=== PATIENT | female | born 2000 | race Caucasian/White ===

== ENCOUNTER 2021-01-26 22:25 | Emergency (ER) | payer OTHER ==
[~2021-01-26] VITALS: Ht 154.9 cm; Wt 59.0 kg
[2021-01-26 22:30] VITALS: BP 132/77
--- NOTE | 2021-01-26 22:30 | NUR ---
to bed ambulatory
--- NOTE | 2021-01-26 22:54 | NUR ---
20 Y/O FEMALE PT PRESENT TO ED C/O RASH X 1 WEEK. PER PT, "I GOT THE COVID-19 VACCINE LAST Dec, AND I GOT MODERNA. AND I'V BEEN ITCHY EVER SINCE THAT AND I HAVE RASHES ALL OVER MY BODY." DENIES ANY FEVER, CHILLS, NAUSEA, VOMMITING. PT IS NOT IN ANY RESPIRATORY DISTRESS. NKA PMH: DENIES
[2021-01-27] MEDS ORDERED: diphenhydrAMINE 50 MG/ML VIAL IM ONE (00:20)
[2021-01-27] MEDS ORDERED: methylPREDNISolone SS 60 MG in WATER STERILE 1 ML IM ONE (00:20)
[2021-01-27] MEDS ORDERED: methylPREDNISolone SS 40 MG/ML VIAL ONE ×2 (00:41→00:42)
[2021-01-27] MEDS ORDERED: WATER STERILE 10 ML MC ONE ×2 (00:41→00:42)
[2021-01-27] MEDS ORDERED: PRED20TA5 PO (01:06)
[2021-01-27] MEDS ORDERED: FAMO-90 PO (01:06)
[2021-01-27] MEDS ORDERED: DIPH25TA53 PO (01:06)
[2021-01-27] MEDS ORDERED: BENC TP (01:06)
[2021-01-27 01:15] VITALS: BP 132/77
--- NOTE | 2021-01-27 01:15 | NUR ---
Patient discharged with v/s stable. Written and verbal after care instructions given and explained. Patient alert, oriented and verbalized understanding of instructions. Ambulatory with steady gait. All questions addressed prior to discharge. ID band removed. Patient advised to follow up with PMD. Rx of BENADRYL AND PEPCID given. Patient educated on indication of medication including possible reaction and side effects. Opportunity to ask questions provided and answered.
== END 2021-01-27 01:15 | disposition home or self-care (01) ==
LOC: MED 22:25
DX: T88.1XXA Other complications following immunization, not elsewhere classified, initial encounter (principal); L50.9 Urticaria, unspecified
CPT/HCPCS: 96372; 99284; J1200; J2920

== ENCOUNTER 2021-07-09 21:08 | Emergency (ER) | payer OTHER ==
[~2021-07-09] VITALS: Ht 152.4 cm; Wt 56.7 kg
[~2021-07-09 21:08] MED LIST: BENC TP; DIPH25TA53 PO; FAMO-90 PO; PRED20TA5 PO
[2021-07-09 21:10] VITALS: BP 115/83
--- NOTE | 2021-07-09 21:10 | NUR ---
TO BED AMBULATORY
[2021-07-09] MEDS ORDERED: ONDANSETRON 4 MG ODT PO ONE (21:20)
--- NOTE | 2021-07-09 21:30 | NUR ---
20 Y/O FEMALE BIB SELF, C/O N/V X1-2 WKS. PATIENT PRESENTS TO ED WITH COMPLAINTS OF FATIGE AND FEELING ACHY. PT STATES SHE HAS BEEN SLEEPING A LOT AND NOT EATING WELL FOR ALMOST 2 WEEKS. DENIES DIARRHEA OR HEMATEMESIS; SKIN IS PINK/WARM/DRY; AAOX4 WITH EVEN AND STEADY GAIT; LUNGS CLEAR BL; HR EVEN AND REGULAR; PT DENIES ANY FEVER, CP, SOB, OR COUGH AT THIS TIME; PATIENT STATES PAIN OF 0/10 AT THIS TIME; VSS; PATIENT POSITIONED FOR COMFORT; HOB ELEVATED; BEDRAILS UP X1; BED DOWN. ER MD MADE AWARE OF PT STATUS. DENIES HX, ALLERGIES, OR MEDS.
--- NOTE | 2021-07-09 21:38 | NUR ---
URINE COLLECTED AND WALKED TO LAB
[2021-07-09 21:51] LABS: BILIRUBIN,URINE NEGATIVE (NEGATIVE); BLOOD, URINE NEGATIVE (NEGATIVE); LEUKOCYTE ESTERASE ,URINE TRACE (NEGATIVE); NITRITE, URINE NEGATIVE (NEGATIVE); PH,URINE 6.5 (5.0-9.0); UGLUCOSE NEGATIVE (NEGATIVE)
[2021-07-09 21:52] LABS: APPEARANCE,URINE HAZY (CLEAR); COLOR,URINE STRAW (YELLOW)
[2021-07-09 22:02] LABS: RBC,URINE NONE SEEN /HPF (0-5); WBC,URINE 20-60 /HPF (0-5)
--- NOTE | 2021-07-09 22:10 | NUR ---
Dr. Bashir examining patient.
[2021-07-09] MEDS ORDERED: cefTRIAXone 1,000 MG in LIDOCAINE MPF 1% 2.1 ML IM ONE (22:15)
[2021-07-09] MEDS ORDERED: PHENAZOPYRIDINE 100 MG TAB PO ONE (22:15)
[2021-07-09] MEDS ORDERED: ACETAMINOPHEN 325 MG TAB PO ONE (22:15)
[2021-07-09] MEDS ORDERED: cefTRIAXone 1,000 MG VIAL ONE (22:22)
[2021-07-09] MEDS ORDERED: LIDOCAINE MPF 1% 5 ML ONE (22:23)
[2021-07-09] MEDS ORDERED: PHEN-1877 PO (22:56)
[2021-07-09] MEDS ORDERED: CEPH-588 PO (22:56)
[2021-07-09] MEDS ORDERED: ONDA-188 SL (22:56)
[2021-07-09 23:03] VITALS: BP 115/83
--- NOTE | 2021-07-09 23:03 | NUR ---
Patient discharged with v/s stable. Written and verbal after care instructions given and explained. Patient alert, oriented and verbalized understanding of instructions. Ambulatory with steady gait. All questions addressed prior to discharge. ID band removed. Patient advised to follow up with PMD. Rx of Cephalexin, Ondansetron, and Phewnazopyridine given. Patient educated on indication of medication including possible reaction and side effects. Opportunity to ask questions provided and answered. VSS, A/OX4, AMBULATORY, UNLABORED BREATHING, AND CALM DEMEANOR.
== END 2021-07-09 23:03 | disposition home or self-care (01) ==
LOC: MED 21:08
DX: N39.0 Urinary tract infection, site not specified (principal); Z79.899 Other long term (current) drug therapy; Z79.2 Long term (current) use of antibiotics
CPT/HCPCS: 81001; 81025; 87086; 96372; 99284; J0696; J2001; Q0162

== ENCOUNTER 2021-11-09 15:19 | Emergency (ER) | payer OTHER ==
[~2021-11-09] VITALS: Ht 149.9 cm; Wt 61.2 kg
[~2021-11-09 15:19] MED LIST changes: +CEPH-588 PO; +ONDA-188 SL; +PHEN-1877 PO
[2021-11-09 15:27] VITALS: BP 135/92
--- NOTE | 2021-11-09 16:35 | NUR ---
PT TAKEN TO ULTRASOUND VIA W/C
[2021-11-09 16:37] LABS: BASOPHILS % (AUTO) 0.7 % (0.0-2.0); EOSINOPHILS # (AUTO) 0.1 K/uL (0-0.4); EOSINOPHILS % (AUTO) 1.5 % (0.0-4.0); HEMATOCRIT 36.5 % (36-48); HEMOGLOBIN 12.3 g/dL (12.0-16.0); LYMPHOCYTES # (AUTO) 2.4 K/uL (2.5-16.5); LYMPHOCYTES % (AUTO) 35.4 % (20.5-51.1); MEAN CORPUSCULAR HEMOGLOBIN 31 pg (27-31); MEAN CORPUSCULAR HGB CONC 34 g/dL (33-37); MEAN CORPUSCULAR VOLUME 91.6 fL (80-94); MONOCYTES # (AUTO) 0.3 K/uL (0.8-1.0); MONOCYTES % (AUTO) 4.9 % (1.7-9.3); NEUTROPHILS # (AUTO) 3.9 K/uL (1.8-7.7); NEUTROPHILS % (AUTO) 57.5 % (42.2-75.2); PLATELET COUNT (AUTO) 239 K/uL (140-450); RED BLOOD CELL COUNT(AUTO) 3.98 MIL/uL (4.20-5.40); WHITE BLOOD COUNT (AUTO) 6.8 K/uL (4.5-11.0)
[2021-11-09] MEDS ORDERED: CEPH-588 PO (18:05)
[2021-11-09] MEDS ORDERED: ACET-9882 PO (18:05)
[2021-11-09 18:30] VITALS: BP 108/67
--- NOTE | 2021-11-09 18:30 | NUR ---
Patient discharged with v/s stable. Written and verbal after care instructions given and explained. Patient verbalized understanding. Ambulatory with steady gait. All questions addressed prior to discharge. Advised to follow up with PMD.
== END 2021-11-09 18:28 | disposition home or self-care (01) ==
LOC: MED 15:19
DX: O23.41 Unspecified infection of urinary tract in pregnancy, first trimester (principal); M54.9 Dorsalgia, unspecified; R03.0 Elevated blood-pressure reading, without diagnosis of hypertension; Z3A.01 Less than 8 weeks gestation of pregnancy; Z79.899 Other long term (current) drug therapy; Z79.2 Long term (current) use of antibiotics
CPT/HCPCS: 36415; 76817; 81002; 81025; 84702; 85025; 87086; 99284; Q0092

== ENCOUNTER 2021-11-24 01:16 | Emergency (ER) | payer OTHER ==
[~2021-11-24] VITALS: Ht 152.4 cm; Wt 55.0 kg
[~2021-11-24 01:16] MED LIST changes: +ACET-9882 PO
[2021-11-24 01:24] VITALS: BP 109/66
--- NOTE | 2021-11-24 01:29 | NUR ---
PT AMBULATED TO BED #7
--- NOTE | 2021-11-24 01:43 | NUR ---
21/F BIB SELF C/C VAG BLEED 6WKS XTHURSDAY. +SPOTTING. REPORTS INTERMITTENT 6/10 CRAMPING PAIN. +N/V, STATES SHE IS UNABLE TO HOLD ANYTHING DOWN FOOD/DRINKS. LAST TIME PATIENT ATE WAS ON / DOESN HAVE AN APPETITE. PATIENT HAS AN OB KOFI ON THURSDAY. RR EVEN AND UNLABORED. PLACED ON GOWN. BED LOW AND LOCKED. SIDE RAIL UP FOR SAFETY. ALL NEEDS MET. LMP: MAY, ABNORMAL CYCLE. DENIES PMHX MEDS PRENATALS NKA
[2021-11-24] MEDS ORDERED: ONDANSETRON 4 MG/2 ML VIAL IVP ONE (01:45)
[2021-11-24] MEDS ORDERED: NACL 0.9% 1,000 ML IV ONE (01:45)
[2021-11-24] MEDS ORDERED: ACETAMINOPHEN EXTRA STRENGTH 500 MG TAB PO ONE (01:45)
--- NOTE | 2021-11-24 01:52 | NUR ---
JONNYN UNABLE TO PROVIDE URINE AT THIS TIME. RQ APPLE JUICE. WILL ATTEMPT TO GO LATER
--- NOTE | 2021-11-24 02:00 | NUR ---
MD LLANES AT BEDSIDE
--- NOTE | 2021-11-24 02:12 | NUR ---
IV ESTABLISHED, BLOOD COLLECTED AND HANDED TO LAB
--- NOTE | 2021-11-24 02:20 | NUR ---
clarified with to only give 4mg of zofran ivp.
[2021-11-24 02:30] LABS: BASOPHILS % (AUTO) 0.6 % (0.0-2.0); EOSINOPHILS % (AUTO) 0.1 % (0.0-4.0); HEMATOCRIT 32.3 % (36-48); HEMOGLOBIN 11.3 g/dL (12.0-16.0); LYMPHOCYTES # (AUTO) 1.7 K/uL (2.5-16.5); MEAN CORPUSCULAR HEMOGLOBIN 31 pg (27-31); MEAN CORPUSCULAR HGB CONC 35 g/dL (33-37); MEAN CORPUSCULAR VOLUME 89.6 fL (80-94); MONOCYTES # (AUTO) 0.7 K/uL (0.8-1.0); MONOCYTES % (AUTO) 9.6 % (1.7-9.3); NEUTROPHILS # (AUTO) 4.8 K/uL (1.8-7.7); NEUTROPHILS % (AUTO) 66.7 % (42.2-75.2); PLATELET COUNT (AUTO) 226 K/uL (140-450); RED CELL DISTRIBUTION WIDTH 12.5 % (11.6-13.7); WHITE BLOOD COUNT (AUTO) 7.2 K/uL (4.5-11.0)
--- NOTE | 2021-11-24 02:30 | NUR ---
CALLED US, SPOKE TO ANDREA.. US TECH AWARE OF ORDER WILL BE COMING FROM [facility].
--- NOTE | 2021-11-24 02:44 | NUR ---
PATIENT AMBULATED TO THE RR
--- NOTE | 2021-11-24 02:46 | NUR ---
URINE COLLECTED AND WALKED TO LAB
--- NOTE | 2021-11-24 02:59 | NUR ---
US AT BEDSIDE
[2021-11-24 03:13] LABS: ALBUMIN 4.1 g/dL (3.4-5.0); ANION GAP 11.8 (8-16); CARBON DIOXIDE 25.9 mmol/L (21-32); CREATININE 0.6 mg/dL (0.6-1.3); POTASSIUM 3.7 mmol/L (3.5-5.1); TOTAL BILIRUBIN 0.5 mg/dL (0.0-1.0)
[2021-11-24 03:22] LABS: BILIRUBIN,URINE NEGATIVE (NEGATIVE); BLOOD, URINE NEGATIVE (NEGATIVE); COLOR,URINE YELLOW (YELLOW); LEUKOCYTE ESTERASE ,URINE NEGATIVE (NEGATIVE); NITRITE, URINE NEGATIVE (NEGATIVE); UGLUCOSE NEGATIVE (NEGATIVE)
[2021-11-24 03:35] LABS: APPEARANCE,URINE SLIGHTLY HAZY (CLEAR); RBC,URINE 0-5 /HPF (0-5)
--- NOTE | 2021-11-24 04:20 | NUR ---
PATIETN SLEEPING IN BED. DOESNT APPEAR TO BE IN DISTRESS. BED LOW AND LOCKED. SIDE RAIL UP.
[2021-11-24] MEDS ORDERED: CEPH-588 PO (04:59)
--- NOTE | 2021-11-24 04:59 | NUR ---
CHERYL AMBULATED TO THE RR AND BACK TO BED
--- NOTE | 2021-11-24 05:35 | NUR ---
PATIENT RQ FOOD AND DRINKS. SITTING IN BED EATING.
--- NOTE | 2021-11-24 05:35 | NUR ---
IV removed, catheter intact and site benign. Applied folded 4x4 gauze and tape to stop bleeding.
[2021-11-24 05:40] VITALS: BP 112/70
--- NOTE | 2021-11-24 05:40 | NUR ---
Patient discharged with v/s stable. Written and verbal after care instructions given and explained. Patient alert, oriented and verbalized understanding of instructions. Ambulatory with steady gait. All questions addressed prior to discharge. ID band removed. Patient advised to follow up with PMD. Rx of KEFLEX given.
--- NOTE | 2021-11-24 05:50 | NUR ---
The patient's care was reviewed and supervised by Bri Kelly RN.
== END 2021-11-24 05:39 | disposition home or self-care (01) ==
LOC: MED 01:16
DX: O20.0 Threatened abortion (principal); O23.41 Unspecified infection of urinary tract in pregnancy, first trimester; Z79.2 Long term (current) use of antibiotics; Z79.899 Other long term (current) drug therapy; Z3A.01 Less than 8 weeks gestation of pregnancy
CPT/HCPCS: 36415; 76801; 80053; 81001; 84702; 84703; 85025; 86900; 86901; 87086; 96361; 96374; 99285; J2405; J7030; Q0092

== ENCOUNTER 2021-12-27 18:52 | Emergency (ER) | payer OTHER ==
[~2021-12-27] VITALS: Ht 152.4 cm; Wt 52.2 kg
--- NOTE | 2021-12-27 19:01 | NUR ---
name called, no answer at this time
[2021-12-27 19:22] VITALS: BP 106/55
--- NOTE | 2021-12-27 19:28 | NUR ---
Triage note: c/o N/V x 2 days 11 weeks . pmh: denies
[2021-12-27] MEDS ORDERED: NACL 0.9% 1,000 ML IV ONE (22:20)
[2021-12-27] MEDS ORDERED: ONDANSETRON 4 MG/2 ML VIAL IVP ONE (22:25)
[2021-12-27 22:34] LABS: BASOPHILS % (AUTO) 0.5 % (0.0-2.0); EOSINOPHILS % (AUTO) 0.7 % (0.0-4.0); HEMATOCRIT 33.9 % (36-48); HEMOGLOBIN 11.4 g/dL (12.0-16.0); LYMPHOCYTES % (AUTO) 29.4 % (20.5-51.1); MEAN CORPUSCULAR HEMOGLOBIN 30 pg (27-31); MEAN CORPUSCULAR HGB CONC 34 g/dL (33-37); MEAN CORPUSCULAR VOLUME 90.3 fL (80-94); MONOCYTES # (AUTO) 0.3 K/uL (0.8-1.0); NEUTROPHILS # (AUTO) 4.4 K/uL (1.8-7.7); NEUTROPHILS % (AUTO) 65.4 % (42.2-75.2); PLATELET COUNT (AUTO) 213 K/uL (140-450); RED BLOOD CELL COUNT(AUTO) 3.75 MIL/uL (4.20-5.40); RED CELL DISTRIBUTION WIDTH 13.2 % (11.6-13.7); WHITE BLOOD COUNT (AUTO) 6.8 K/uL (4.5-11.0)
[2021-12-27 22:40] LABS: APPEARANCE,URINE HAZY (CLEAR); BILIRUBIN,URINE NEGATIVE (NEGATIVE); BLOOD, URINE NEGATIVE (NEGATIVE); COLOR,URINE YELLOW (YELLOW); LEUKOCYTE ESTERASE ,URINE 1+ (NEGATIVE); NITRITE, URINE NEGATIVE (NEGATIVE); UGLUCOSE NEGATIVE (NEGATIVE)
[2021-12-27 22:48] LABS: ALBUMIN 3.5 g/dL (3.4-5.0); ANION GAP 11.3 (8-16); CARBON DIOXIDE 26.1 mmol/L (21-32); CREATININE 0.6 mg/dL (0.6-1.3); POTASSIUM 3.4 mmol/L (3.5-5.1); TOTAL BILIRUBIN 0.3 mg/dL (0.0-1.0)
[2021-12-27 22:56] LABS: RBC,URINE 0-5 /HPF (0-5)
--- NOTE | 2021-12-28 00:15 | NUR ---
PT TO ROOM 8 . GOWN PLACED ON PT.
--- NOTE | 2021-12-28 00:25 | NUR ---
21YR OLD FEMALE BIB SELF C/O VOMITING NAUSEA. PT IS 11WEEKS PREG . DENIES VAG BLEED OR PAIN . STATES HAS A SOME CRAMPING WHEN VOMITING. PT FIRST PREG. NO DISTRESS NOTED. A&OX4 . 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 IS RECIEVING CARE. RESP EVEN AND UNLABORED. HOB ELEVATED. 22G PLACED IN R AC. NKDA NO MED HX
--- NOTE | 2021-12-28 01:11 | NUR ---
PT IS ASLEEP HOB ELEVATED. PO CHALLENGE TOLERATED. DENIES NAUSEA .
[2021-12-28] MEDS ORDERED: cefTRIAXone 1,000 MG VIAL ONE (01:30)
[2021-12-28] MEDS ORDERED: NITR100C7 PO (02:18)
[2021-12-28] MEDS ORDERED: ONDA-188 SL (02:21)
== END 2021-12-28 02:23 | disposition home or self-care (01) ==
LOC: MED 18:52
DX: O21.0 Mild hyperemesis gravidarum (principal); O23.41 Unspecified infection of urinary tract in pregnancy, first trimester; N39.0 Urinary tract infection, site not specified; Z3A.11 11 weeks gestation of pregnancy
CPT/HCPCS: 36415; 80053; 81001; 84702; 85025; 87040; 87086; 96361; 96365; 96375; 99284; J0696; J2405; J7030

== ENCOUNTER 2022-01-12 12:00 | Emergency (ER) | payer OTHER ==
[~2022-01-12] VITALS: Ht 152.4 cm; Wt 51.7 kg
[~2022-01-12 12:00] MED LIST changes: +NITR100C7 PO
--- NOTE | 2022-01-12 12:11 | NUR ---
PATIENT BIBA TO BED 5
[2022-01-12 12:20] VITALS: BP 122/60
--- NOTE | 2022-01-12 12:35 | NUR ---
21 y/o female biba from home, c/o vaginal bleeding that started today, pt states she is 13 weeks with hx of previous miscarriage. pt states she has increased pain on right pelvic area that radiates to ruq of her abd, increases with ambulation. pt is a&ox4, ambulates with heavy assist at this time due to pain. lungs bl clear, heart rate even and regular. pt denies cough, fever, sob, cp or sore throat. denies vomiting or diarrhea. 2G 1A 0L pmh: denies nka med: vitamins
[2022-01-12 13:26] LABS: BASOPHILS % (AUTO) 0.4 % (0.0-2.0); EOSINOPHILS % (AUTO) 0.6 % (0.0-4.0); HEMATOCRIT 31.5 % (36-48); HEMOGLOBIN 10.8 g/dL (12.0-16.0); LYMPHOCYTES # (AUTO) 1.2 K/uL (2.5-16.5); LYMPHOCYTES % (AUTO) 18.4 % (20.5-51.1); MEAN CORPUSCULAR HEMOGLOBIN 31 pg (27-31); MEAN CORPUSCULAR HGB CONC 34 g/dL (33-37); MEAN CORPUSCULAR VOLUME 91.3 fL (80-94); MONOCYTES # (AUTO) 0.3 K/uL (0.8-1.0); MONOCYTES % (AUTO) 4.7 % (1.7-9.3); NEUTROPHILS # (AUTO) 5.1 K/uL (1.8-7.7); NEUTROPHILS % (AUTO) 75.9 % (42.2-75.2); PLATELET COUNT (AUTO) 190 K/uL (140-450); RED BLOOD CELL COUNT(AUTO) 3.45 MIL/uL (4.20-5.40); RED CELL DISTRIBUTION WIDTH 13.4 % (11.6-13.7); WHITE BLOOD COUNT (AUTO) 6.7 K/uL (4.5-11.0)
[2022-01-12 13:40] LABS: ALBUMIN 3.1 g/dL (3.4-5.0); ANION GAP 11.9 (8-16); CARBON DIOXIDE 22.7 mmol/L (21-32); CREATININE 0.6 mg/dL (0.6-1.3); POTASSIUM 3.6 mmol/L (3.5-5.1); TOTAL BILIRUBIN 0.3 mg/dL (0.0-1.0)
[2022-01-12 15:32] VITALS: BP 122/60
== END 2022-01-12 15:34 | disposition home or self-care (01) ==
LOC: MED 12:00
DX: O20.0 Threatened abortion (principal); Z3A.13 13 weeks gestation of pregnancy
CPT/HCPCS: 36415; 76801; 80053; 84702; 85025; 86901; 99284; Q0092

== ENCOUNTER 2022-05-16 20:24 | Observation (INO) | payer MEDICAID ==
[~2022-05-16] VITALS: Ht 152.4 cm; Wt 54.4 kg
[2022-05-16] MEDS ORDERED: cefTRIAXone 1,000 MG in LIDOCAINE MPF 1% 2.1 ML IM ONE (21:15)
[2022-05-16] MEDS ORDERED: LIDOCAINE 1% 500 MG/ 50 ML VIAL INJ ONE (21:15)
[2022-05-16 21:17] VITALS: BP 113/69
[2022-05-16] MEDS ORDERED: cefTRIAXone 1,000 MG VIAL ONE (21:21)
[2022-05-16] MEDS ORDERED: LIDOCAINE 1% 500 MG/50 ML VIAL ONE (21:22)
[2022-05-16] MEDS ORDERED: cefTRIAXone 1,000 MG in LIDOCAINE MPF 1% 2.1 ML INJ SCH (21:30)
== END 2022-05-16 22:00 | disposition home or self-care (01) ==
LOC: MLD 20:24
PROVIDERS: ADMIT Obstetrics & Gynecology; ATTEND Obstetrics & Gynecology
DX: O26.893 Other specified pregnancy related conditions, third trimester (principal); R10.9 Unspecified abdominal pain; Z3A.31 31 weeks gestation of pregnancy
CPT/HCPCS: 96374; G0378; J0696; J2001

== ENCOUNTER 2022-06-16 11:11 | Observation (INO) | payer MEDICAID ==
[~2022-06-16] VITALS: Ht 152.4 cm; Wt 63.5 kg
[2022-06-16] MEDS ORDERED: PRETAB PO (11:52)
[2022-06-16 12:14] VITALS: BP 110/61
[2022-06-16] MEDS ORDERED: diphenhydrAMINE 50 MG CAP PO SCH (13:00)
[2022-06-16 13:02] LABS: BASOPHILS % (AUTO) 0.6 % (0.0-2.0); EOSINOPHILS # (AUTO) 0.1 K/uL (0-0.4); HEMATOCRIT 27.9 % (36-48); HEMOGLOBIN 9.5 g/dL (12.0-16.0); LYMPHOCYTES # (AUTO) 1.9 K/uL (2.5-16.5); MEAN CORPUSCULAR HEMOGLOBIN 30 pg (27-31); MEAN CORPUSCULAR HGB CONC 34 g/dL (33-37); MEAN CORPUSCULAR VOLUME 87.8 fL (80-94); MONOCYTES # (AUTO) 0.4 K/uL (0.8-1.0); MONOCYTES % (AUTO) 6.2 % (1.7-9.3); NEUTROPHILS # (AUTO) 4.4 K/uL (1.8-7.7); NEUTROPHILS % (AUTO) 64.2 % (42.2-75.2); PLATELET COUNT (AUTO) 203 K/uL (140-450); RED BLOOD CELL COUNT(AUTO) 3.18 MIL/uL (4.20-5.40); RED CELL DISTRIBUTION WIDTH 13.6 % (11.6-13.7); WHITE BLOOD COUNT (AUTO) 6.9 K/uL (4.5-11.0)
[2022-06-16 13:20] LABS: APPEARANCE,URINE SL CLOUDY (CLEAR); BILIRUBIN,URINE NEGATIVE (NEGATIVE); BLOOD, URINE NEGATIVE (NEGATIVE); COLOR,URINE YELLOW (YELLOW); LEUKOCYTE ESTERASE ,URINE 1+ (NEGATIVE); NITRITE, URINE NEGATIVE (NEGATIVE); UGLUCOSE NEGATIVE (NEGATIVE)
[2022-06-16 13:26] LABS: ALBUMIN 2.8 g/dL (3.4-5.0); ANION GAP 10.2 (8-16); CARBON DIOXIDE 23.4 mmol/L (21-32); CREATININE 0.6 mg/dL (0.6-1.3); POTASSIUM 3.6 mmol/L (3.5-5.1); TOTAL BILIRUBIN 0.4 mg/dL (0.0-1.0)
[2022-06-16 13:34] LABS: RBC,URINE 0-5 /HPF (0-5)
[2022-06-16 13:35] LABS: OTHER CASTS, URINE None Seen /LPF (None Seen)
[2022-06-16 15:26] VITALS: BP 101/66
[2022-06-16] MEDS ORDERED: TRIAMCINOLONE 0.1% CRM 15 GM TUBE TP SCH (21:00)
== END 2022-06-16 16:00 | disposition home or self-care (01) ==
LOC: MLD 11:11 → MERGE 11:11
PROVIDERS: ADMIT Obstetrics & Gynecology; ATTEND Obstetrics & Gynecology
DX: O26.893 Other specified pregnancy related conditions, third trimester (principal); Z20.822 Contact with and (suspected) exposure to COVID-19; L29.9 Pruritus, unspecified; O62.9 Abnormality of forces of labor, unspecified; Z3A.35 35 weeks gestation of pregnancy
CPT/HCPCS: 36415; 80053; 81001; 85025; 86886; 86900; 86901; 87086; 87426; G0378; Q0163

== ENCOUNTER 2022-07-08 16:35 | Inpatient (IN) | payer MEDICAID ==
[~2022-07-08] VITALS: Ht 152.4 cm; Wt 63.5 kg
[~2022-07-08 16:35] MED LIST changes: -ACET-9882 PO; -BENC TP; -CEPH-588 PO; -DIPH25TA53 PO; -FAMO-90 PO; -NITR100C7 PO; -ONDA-188 SL; -PHEN-1877 PO; -PRED20TA5 PO; +PRETAB PO
[2022-07-08] MEDS ORDERED: METHYLERGONOVINE 0.2 MG/ML AMP IM PRN (16:55)
[2022-07-08] MEDS ORDERED: LACTATED RINGERS 500 ML IV SCH (16:55)
[2022-07-08] MEDS ORDERED: OXYTOCIN 20 UNITS in LACTATED RINGERS 1,000 ML IV SCH (16:55)
[2022-07-08] MEDS ORDERED: OXYTOCIN 10 UNITS/ML VIAL IM SCH (16:55)
[2022-07-08] MEDS ORDERED: CARBOPROST 250 MCG/ML AMP IM PRN (16:55)
[2022-07-08] MEDS: LACTATED RINGERS 1,000 ML IV SCH (16:56)
--- NOTE | 2022-07-08 17:07 | NUR ---
PATIENT HAS BEEN SCREENED AND CATEGORIZED LOW NUTRITION RISK. PATIENT WILL BE SEEN WITHIN 7 DAYS OF ADMISSION. 07/15/[address]VIEW[address] BY ELMA BLOCK RD
[2022-07-08 17:15] LABS: APPEARANCE,URINE CLEAR (CLEAR); BILIRUBIN,URINE NEGATIVE (NEGATIVE); BLOOD, URINE 1+ (NEGATIVE); COLOR,URINE YELLOW (YELLOW); LEUKOCYTE ESTERASE ,URINE TRACE (NEGATIVE); NITRITE, URINE NEGATIVE (NEGATIVE); UGLUCOSE NEGATIVE (NEGATIVE)
[2022-07-08 17:15] LABS: BASOPHILS % (AUTO) 0.3 % (0.0-2.0); EOSINOPHILS % (AUTO) 0.3 % (0.0-4.0); HEMATOCRIT 29.3 % (36-48); HEMOGLOBIN 9.8 g/dL (12.0-16.0); LYMPHOCYTES # (AUTO) 1.5 K/uL (2.5-16.5); LYMPHOCYTES % (AUTO) 19.1 % (20.5-51.1); MEAN CORPUSCULAR HEMOGLOBIN 29 pg (27-31); MEAN CORPUSCULAR HGB CONC 33 g/dL (33-37); MEAN CORPUSCULAR VOLUME 87.1 fL (80-94); MONOCYTES # (AUTO) 0.4 K/uL (0.8-1.0); MONOCYTES % (AUTO) 5.1 % (1.7-9.3); NEUTROPHILS # (AUTO) 5.8 K/uL (1.8-7.7); NEUTROPHILS % (AUTO) 75.2 % (42.2-75.2); PLATELET COUNT (AUTO) 235 K/uL (140-450); RED BLOOD CELL COUNT(AUTO) 3.36 MIL/uL (4.20-5.40); RED CELL DISTRIBUTION WIDTH 14.3 % (11.6-13.7); WHITE BLOOD COUNT (AUTO) 7.7 K/uL (4.5-11.0)
[2022-07-08] MEDS: MORPHINE SULFATE 10 MG/ML VIAL IVP PRN ×2 (17:46→20:55)
[2022-07-08] MEDS: ONDANSETRON 4 MG/2 ML VIAL IVP PRN (17:47)
[2022-07-08 17:49] LABS: PROTHROMBIN TIME 8.8 secs (10.8-13.4)
[2022-07-08 17:52] LABS: ALBUMIN 2.8 g/dL (3.4-5.0); ANION GAP 12.4 (8-16); CARBON DIOXIDE 25.2 mmol/L (21-32); CREATININE 0.7 mg/dL (0.6-1.3); POTASSIUM 3.6 mmol/L (3.5-5.1); TOTAL BILIRUBIN 0.4 mg/dL (0.0-1.0)
[2022-07-08 18:37] VITALS: BP 119/75
[2022-07-09] MEDS: ONDANSETRON 4 MG/2 ML VIAL IVP PRN ×2 (00:23→06:09)
[2022-07-09] MEDS: MORPHINE SULFATE 10 MG/ML VIAL IVP PRN ×6 (00:24→16:22)
[2022-07-09] MEDS: LACTATED RINGERS 1,000 ML IV SCH ×3 (01:59→21:38)
[2022-07-09] MEDS ORDERED: OXYTOCIN 20 UNITS/LR PREMIX 1,000 ML IV ONE (13:06)
[2022-07-09] MEDS ORDERED: LIDOCAINE 1% 500 MG/50 ML VIAL ONE (13:07)
[2022-07-09 16:22] VITALS: BP 133/87
[2022-07-09] MEDS ORDERED: ROPIVACAINE 0.2%/NS PREMIX 200 ML EPI ONE (21:43)
[2022-07-09] MEDS ORDERED: fentaNYL citrate 0.05 MG/ML VIAL ONE (21:59)
[2022-07-10] MEDS: LACTATED RINGERS 1,000 ML IV SCH (00:22)
[2022-07-10] MEDS ORDERED: LIDOCAINE 1% 500 MG/ 50 ML VIAL INJ ONE (00:55)
[2022-07-10] MEDS ORDERED: LIDOCAINE 1% 500 MG/50 ML VIAL ONE (00:55)
--- NOTE | 2022-07-10 01:00 | NUR ---
CALLED TO L&D FOR MECONIUM VIRGINAL DELIVERY. AT APPROXIMATELY [id number] BABY CAME OUT CRYING VIGOROUSLY., GOOD COLOR. BABY WAS PLACED UNDER WARMER, SUCTIONS SMALL TO MODERATE AMOUNT OF GREEN THICK SECRETIONS FROM THE MOUTH AND SMALL FROM NASALS. BABY WAS DRY AND STIMULATED. BABY WAS LEFT IN THE CARE OF RN.
[2022-07-10] MEDS ORDERED: METHYLERGONOVINE 0.2 MG TAB PO PRN (02:35)
[2022-07-10] MEDS ORDERED: METHYLERGONOVINE 0.2 MG/ML AMP IM PRN (02:35)
[2022-07-10] MEDS ORDERED: BENZOCAINE/MENTHOL 20%-0.5% 60 GM CAN TP PRN (02:35)
[2022-07-10] MEDS ORDERED: MEASLES, MUMPS, AND RUBELLA 1 VIAL SQVAC ONE (02:35)
[2022-07-10] MEDS ORDERED: IBUPROFEN 800 MG TAB PO PRN (02:35)
[2022-07-10] MEDS ORDERED: OXYTOCIN 10 UNITS/ML VIAL IM PRN (02:35)
[2022-07-10] MEDS: MULTIVIT/MIN/CA/FE/FA 1 TAB PO SCH (09:10)
[2022-07-11 05:54] LABS: HEMATOCRIT 21.5 % (36-48); HEMOGLOBIN 7.3 g/dL (12.0-16.0)
[2022-07-11] MEDS: MULTIVIT/MIN/CA/FE/FA 1 TAB PO SCH (18:19)
[2022-07-12] MEDS: MULTIVIT/MIN/CA/FE/FA 1 TAB PO SCH (09:10)
== END 2022-07-12 13:40 | disposition home or self-care (01) | DRG 560 ==
LOC: MFCC 16:35 → OBSVTOIN 16:35 → MLD 16:36 → MFCC 07-10 02:45
PROVIDERS: ADMIT Obstetrics & Gynecology; ATTEND Obstetrics & Gynecology
PROC: 10E0XZZ Delivery of Products of Conception, External Approach (ICD-10-PCS; principal; 2022-07-10)
PROC: 0KQM0ZZ Repair Perineum Muscle, Open Approach (ICD-10-PCS; 2022-07-10)
PROC: 0W8NXZZ Division of Female Perineum, External Approach (ICD-10-PCS; 2022-07-10)
PROC: 3E0R3BZ Introduction of Anesthetic Agent into Spinal Canal, Percutaneous Approach (ICD-10-PCS; 2022-07-10)
PROC: 00HU33Z Insertion of Infusion Device into Spinal Canal, Percutaneous Approach (ICD-10-PCS; 2022-07-10)
PROC: 3E0234Z Introduction of Serum, Toxoid and Vaccine into Muscle, Percutaneous Approach (ICD-10-PCS; 2022-07-10)
DX: O69.81X0 Labor and delivery complicated by cord around neck, without compression, not applicable or unspecified (principal); Z37.0 Single live birth; D62 Acute posthemorrhagic anemia; O70.1 Second degree perineal laceration during delivery; O99.02 Anemia complicating childbirth; O77.0 Labor and delivery complicated by meconium in amniotic fluid; Z20.822 Contact with and (suspected) exposure to COVID-19; Z3A.39 39 weeks gestation of pregnancy
CPT/HCPCS: 36415; 51702; 59409; 80053; 81001; 85018; 85025; 85610; 85730; 86592; 86886; 86900; 86901; 87086; J2001; J2270; J2405; J2590; J2795; J3010

== ENCOUNTER 2022-12-28 21:48 | Emergency (ER) | payer MEDICAID, OTHER ==
[~2022-12-28] VITALS: Ht 152.4 cm; Wt 58.5 kg
[2022-12-28 22:04] VITALS: BP 129/80; PULSE 100; RESP 18; TEMP 98.2; O2SAT 98
[2022-12-28 22:53] VITALS: O2SAT 98
--- NOTE | 2022-12-28 22:53 | NUR ---
C/O BILATERAL EAR ACHE X2DAYS, LOSS OF [id number] PMH: DENIES
== END 2022-12-28 22:54 | disposition home or self-care (01) ==
LOC: MED 21:48
DX: U07.1 COVID-19 (principal)
CPT/HCPCS: 99283

== ENCOUNTER 2023-01-16 20:40 | Emergency (ER) | payer OTHER ==
[~2023-01-16] VITALS: Ht 152.4 cm; Wt 59.0 kg
[2023-01-16 21:33] VITALS: BP 116/77; PULSE 70; RESP 16; TEMP 97.7; O2SAT 98
== END 2023-01-17 02:44 | disposition left against medical advice (07) ==
LOC: MED 20:40
DX: R11.10 Vomiting, unspecified (principal); Z53.21 Procedure and treatment not carried out due to patient leaving prior to being seen by health care provider
CPT/HCPCS: 99281

== ENCOUNTER 2023-05-06 10:15 | Emergency (ER) | payer OTHER ==
[~2023-05-06] VITALS: Ht 152.4 cm; Wt 59.0 kg
[2023-05-06 10:39] VITALS: BP 132/85; PULSE 85; RESP 17; TEMP 98; O2SAT 98
[2023-05-06 12:03] LABS: BASOPHILS % (AUTO) 0.4 % (0.0-2.0); EOSINOPHILS # (AUTO) 0.1 K/uL (0-0.4); EOSINOPHILS % (AUTO) 1.2 % (0.0-4.0); HEMATOCRIT 37.1 % (36-48); HEMOGLOBIN 12.5 g/dL (12.0-16.0); LYMPHOCYTES # (AUTO) 2.7 K/uL (2.5-16.5); LYMPHOCYTES % (AUTO) 33.9 % (20.5-51.1); MEAN CORPUSCULAR HEMOGLOBIN 30 pg (27-31); MEAN CORPUSCULAR HGB CONC 34 g/dL (33-37); MEAN CORPUSCULAR VOLUME 88.4 fL (80-94); MONOCYTES # (AUTO) 0.5 K/uL (0.8-1.0); MONOCYTES % (AUTO) 5.9 % (1.7-9.3); NEUTROPHILS # (AUTO) 4.7 K/uL (1.8-7.7); NEUTROPHILS % (AUTO) 58.6 % (42.2-75.2); PLATELET COUNT (AUTO) 375 K/uL (140-450); RED BLOOD CELL COUNT(AUTO) 4.19 MIL/uL (4.20-5.40); WHITE BLOOD COUNT (AUTO) 7.9 K/uL (4.8-10.8)
[2023-05-06 12:23] LABS: APPEARANCE,URINE CLEAR (CLEAR); BILIRUBIN,URINE NEGATIVE (NEGATIVE); BLOOD, URINE NEGATIVE (NEGATIVE); COLOR,URINE YELLOW (YELLOW); LEUKOCYTE ESTERASE ,URINE NEGATIVE (NEGATIVE); NITRITE, URINE NEGATIVE (NEGATIVE); PROTEIN,URINE NEGATIVE (NEGATIVE); UGLUCOSE NEGATIVE (NEGATIVE); UROBILINOGEN,URINE 0.2 EU/dL (0.2 - 1)
[2023-05-06 12:42] LABS: ANION GAP 12.9 (8-16); CREATININE 0.7 mg/dL (0.6-1.3); POTASSIUM 3.9 mmol/L (3.5-5.1)
[2023-05-06 12:48] LABS: ALBUMIN 3.7 g/dL (3.4-5.0); BILIRUBIN,DIRECT 0.1 mg/dL (0.0-0.3); TOTAL BILIRUBIN 0.2 mg/dL (0.0-1.0); TOTAL PROTEIN, SERUM 7.6 g/dL (6.4-8.2)
[2023-05-06] MEDS ORDERED: ONDA8TAB87 PO (12:57)
[2023-05-06] MEDS ORDERED: IBUP-2213 PO (12:57)
[2023-05-06 13:04] VITALS: BP 132/85; PULSE 85; RESP 17; TEMP 98; O2SAT 98
== END 2023-05-06 13:04 | disposition home or self-care (01) ==
LOC: MED 10:15
DX: R10.31 Right lower quadrant pain (principal); R11.2 Nausea with vomiting, unspecified; R31.9 Hematuria, unspecified; Z79.899 Other long term (current) drug therapy; Z88.7 Allergy status to serum and vaccine
CPT/HCPCS: 36415; 80048; 80076; 81003; 81025; 83690; 85025; 99284

== ENCOUNTER 2023-07-18 22:39 | Emergency (ER) | payer OTHER ==
[~2023-07-18] VITALS: Ht 152.4 cm; Wt 59.0 kg
[~2023-07-18 22:39] MED LIST changes: +IBUP-2213 PO; +ONDA8TAB87 PO
[2023-07-18 23:07] VITALS: PULSE 88; RESP 16; TEMP 98.8; O2SAT 99
[2023-07-19] MEDS ORDERED: COROTSOL LEFT EAR (00:13)
[2023-07-19] MEDS ORDERED: IBUP-2213 PO (00:16)
[2023-07-19] MEDS: IBUPROFEN 600 MG TAB PO ONE (00:44)
[2023-07-19] MEDS: ACETAMINOPHEN EXTRA STRENGTH 500 MG TAB PO ONE (00:46)
== END 2023-07-19 00:45 | disposition home or self-care (01) ==
LOC: MED 22:39
DX: H60.92 Unspecified otitis externa, left ear (principal); Z79.899 Other long term (current) drug therapy
CPT/HCPCS: 99283

== ENCOUNTER 2023-09-22 23:01 | Emergency (ER) | payer OTHER ==
[~2023-09-22] VITALS: Ht 152.4 cm; Wt 68.9 kg
[~2023-09-22 23:01] MED LIST changes: +COROTSOL LEFT EAR
[2023-09-22 23:37] VITALS: BP 115/78; PULSE 92; RESP 18; TEMP 98.3; O2SAT 100
[2023-09-23] MEDS ORDERED: ACET-10509 PO (01:06)
[2023-09-23] MEDS ORDERED: IBUP-2213 PO (01:06)
[2023-09-23] MEDS ORDERED: AMOX1TAB8 PO (01:06)
[2023-09-23] MEDS: IBUPROFEN 600 MG TAB PO ONE (01:14)
[2023-09-23] MEDS: ACETAMINOPHEN EXTRA STRENGTH 500 MG TAB PO ONE (01:15)
[2023-09-23 01:25] VITALS: BP 115/78; PULSE 92; RESP 18; TEMP 98.3; O2SAT 100
== END 2023-09-23 01:25 | disposition home or self-care (01) ==
LOC: MED 23:01
DX: N61.0 Mastitis without abscess (principal); Z79.899 Other long term (current) drug therapy
CPT/HCPCS: 99283

== ENCOUNTER 2023-11-29 15:23 | Emergency (ER) | payer OTHER ==
[~2023-11-29] VITALS: Ht 152.4 cm; Wt 63.5 kg
[~2023-11-29 15:23] MED LIST changes: +ACET-10509 PO; +AMOX1TAB8 PO
[2023-11-29 15:41] VITALS: BP 97/60; PULSE 79; RESP 16; TEMP 97.1; O2SAT 99
[2023-11-29 16:41] LABS: BASOPHILS % (AUTO) 0.6 % (0.0-2.0); EOSINOPHILS # (AUTO) 0.1 K/uL (0-0.4); EOSINOPHILS % (AUTO) 1.8 % (0.0-4.0); HEMATOCRIT 35.5 % (36-48); HEMOGLOBIN 11.9 g/dL (12.0-16.0); LYMPHOCYTES # (AUTO) 2.9 K/uL (2.5-16.5); LYMPHOCYTES % (AUTO) 36.2 % (20.5-51.1); MEAN CORPUSCULAR HEMOGLOBIN 30 pg (27-31); MEAN CORPUSCULAR HGB CONC 34 g/dL (33-37); MEAN CORPUSCULAR VOLUME 90.2 fL (80-94); MONOCYTES # (AUTO) 0.5 K/uL (0.8-1.0); MONOCYTES % (AUTO) 6.8 % (1.7-9.3); NEUTROPHILS # (AUTO) 4.3 K/uL (1.8-7.7); NEUTROPHILS % (AUTO) 54.6 % (42.2-75.2); PLATELET COUNT (AUTO) 293 K/uL (140-450); RED BLOOD CELL COUNT(AUTO) 3.94 MIL/uL (4.20-5.40); RED CELL DISTRIBUTION WIDTH 13.9 % (11.6-13.7); WHITE BLOOD COUNT (AUTO) 7.9 K/uL (4.8-10.8)
[2023-11-29 16:51] LABS: ANION GAP 12.4 (8-16); CALCIUM 8.7 mg/dL (8.5-10.1); CARBON DIOXIDE 25.9 mmol/L (21-32); CREATININE 0.7 mg/dL (0.6-1.3); POTASSIUM 4.3 mmol/L (3.5-5.1)
[2023-11-29 17:02] LABS: APPEARANCE,URINE CLEAR (CLEAR); BILIRUBIN,URINE NEGATIVE (NEGATIVE); BLOOD, URINE NEGATIVE (NEGATIVE); COLOR,URINE YELLOW (YELLOW); LEUKOCYTE ESTERASE ,URINE NEGATIVE (NEGATIVE); NITRITE, URINE NEGATIVE (NEGATIVE); PROTEIN,URINE NEGATIVE (NEGATIVE); UGLUCOSE NEGATIVE (NEGATIVE)
[2023-11-29 17:03] LABS: ALBUMIN 3.5 g/dL (3.4-5.0); BILIRUBIN,DIRECT 0.1 mg/dL (0.0-0.3); TOTAL BILIRUBIN 0.3 mg/dL (0.0-1.0); TOTAL PROTEIN, SERUM 6.8 g/dL (6.4-8.2)
[2023-11-29] MEDS: ACETAMINOPHEN 325 MG TAB PO ONE (17:06)
== END 2023-11-29 22:05 | disposition home or self-care (01) ==
LOC: MED 15:23
DX: O26.891 Other specified pregnancy related conditions, first trimester (principal); R10.31 Right lower quadrant pain; R11.0 Nausea; Z3A.01 Less than 8 weeks gestation of pregnancy; Z79.899 Other long term (current) drug therapy; Z88.7 Allergy status to serum and vaccine
CPT/HCPCS: 36415; 74176; 76830; 80048; 80076; 81003; 81025; 83690; 84702; 85025; 86900; 86901; 99284; Q0092